=== PATIENT | male | born 1995 | race Caucasian/White ===

== ENCOUNTER 2017-07-27 18:42 | Emergency (ER) | payer BC, OTHER ==
[~2017-07-27] VITALS: Ht 175.3 cm; Wt 91.8 kg
[2017-07-27 18:52] VITALS: TEMP 36.8; Ht 175.3 cm; Wt 91.8 kg
[2017-07-27 18:57] VITALS: O2SAT 99
[2017-07-27] MEDS ORDERED: IBUPROFEN 200 MG TAB PO STA (19:08)
[2017-07-27] MEDS ORDERED: ACETAMINOPHEN 500 MG TAB PO STA (19:08)
[2017-07-27 19:19] LABS: BASO % 0.3 %; BASO ABS # 0.02 K/uL (0-0.2); COMPLETE YES; EOS % 0.8 %; HEMATOCRIT 46.2 % (42-52); IG% 0.3 %; LYMPH % 27.9 %; LYMPH ABS # 2.21 K/uL (1.2-3.4); MEAN CELL VOLUME 89.4 fL (80-100); MEAN CORPUSCULAR HEMOGLOBIN 32.3 pg (25-34); MEAN CORPUSCULAR HGB CONC 36.1 g/dl (32-36); MEAN PLATELET VOLUME 11.5 fL (7.4-10.4); MONO % 7.8 %; NEUT % 62.9 %; PLATELET COUNT 169 K/uL (130-400); RED BLOOD COUNT 5.17 M/uL (4.7-6.1); WHITE BLOOD COUNT 7.93 K/uL (4.8-10.8)
[2017-07-27 19:37] LABS: BUN/CREATININE RATIO 16.7 (10-20); CALCIUM 8.8 mg/dl (8.5-10.1); CREATININE 0.98 mg/dl (0.60-1.40); POTASSIUM 3.6 mmol/L (3.5-5.1)
--- NOTE | 2017-07-27 19:49 | EMERGENCY ROOM VISIT NOTE ---
History Report prepared by Joseibtiti: Ayad Richadr Under the Supervision of: Dr. Boaz Mccain M.D. First contact with patient: 19:01 Chief Complaint: CHEST PAIN Stated Complaint: CHEST, LEFT ARM PAIN Nursing Triage Summary: c/o left sided cp since this am with pain in shoulder and left arm History of Present Illness The patient is a 22 year old white male with a past medical history of wisdom teeth extraction who presents to the ED with a cc of constant chest pain beginning this morning. He rates his pain as a 4/10 in severity and reports that the pain is on the left side. The patient states that he woke up with this pain and was also experiencing left arm numbness. He states that his arm was also sore from his shoulder to his biceps. He admits that he had been drinking alcohol over the weekend. He admits that he sleeps on his left side at times. Positive chest pain, left arm sore, left arm numbness, lightheaded. Negative SOB , drug use, medications, allergies, falls, trauma, lifting anything heavy. Source of History: patient Onset: this morning Position: chest Symptom Intensity: 4/10 Timing: constant Associated Symptoms: + numbness, No SOB Review of Systems See HPI for pertinent positives and negatives. A total of ten systems were reviewed and were otherwise negative. Past Medical & Surgical Surgical Problems: (1) H/O wisdom tooth extraction Family History Hypertension Social History Smoking Status: Never Smoker Drug Use: none Marital Status: in relationship Occupation Status: [employer] student Current/Historical Medications No Active Prescriptions or Reported Meds Allergies Coded Allergies: No Known Allergies (Unverified , 01/22/15) Physical Exam Vital Signs Date Time Temp Pulse Resp B/P (MAP) Pulse Ox O2 Delivery O2 Flow Rate FiO2 07/27/17 20:55 57 18 137/72 99 Room Air 07/27/17 19:18 70 07/27/17 19:05 99 Room Air 07/27/17 18:57 99 Room Air 07/27/17 18:57 68 18 150/88 99 Room Air 07/27/17 18:52 36.8 84 18 142/85 98 Room Air Physical Exam GENERAL: Awake, alert, well-appearing, NAD HENT: Normocephalic, atraumatic. EYES: Normal conjunctiva. Sclera non-icteric. NECK: Supple. No nuchal rigidity. FROM. RESPIRATORY: CTAB, no rhonchi, wheezing, crackles CARDIAC: RRR, no MRG ABDOMEN: Soft, NTND, BS+ MSK: No chest wall TTP, no LE edema. No shoulder pain with active or passive shoulder motion. NV intact to MUR nerves. NEURO: GCS 15, CN 2-12 intact, moves all 4s on command, No current sensory deficit. SKIN: No rash or jaundice noted. Medical Decision & Procedures ER Provider Diagnostic Interpretation: X-ray: Per my interpretation, radiologist review. CHEST 2 VIEWS ROUTINE CLINICAL HISTORY: Chest pain. COMPARISON STUDY: No previous studies for comparison. FINDINGS: Lung volumes are normal. No pneumothorax or pleural effusion is present. There is no consolidation to suggest pneumonia. There is an opacity at the right cardiophrenic angle. Cardiac size is normal. Pulmonary vascularity is normal. IMPRESSION: 1. No acute cardiopulmonary findings. 2. Opacity at the right cardiophrenic angle which is nonspecific but may reflect artifact, hernia or pericardial cyst. This is of questionable significance however if symptoms persist, a chest CT is recommended. Electronically signed by: Kelton Shabazz M.D. 07/27/2017 8:43 PM Dictated Date/Time: 07/27/2017 8:39 PM Laboratory Results 07/27/17 19:00 Red Blood Count 5.17, Mean Corpuscular Volume 89.4, Mean Corpuscular Hemoglobin 32.3, Mean Corpuscular Hemoglobin Concent 36.1, Mean Platelet Volume 11.5, Neutrophils (%) (Auto) 62.9, Lymphocytes (%) (Auto) 27.9, Monocytes (%) (Auto) 7.8, Eosinophils (%) (Auto) 0.8, Basophils (%) (Auto) 0.3, Neutrophils # (Auto) 5.00, Lymphocytes # (Auto) 2.21, Monocytes # (Auto) 0.62, Eosinophils # (Auto) 0.06, Basophils # (Auto) 0.02 07/27/17 19:00 Test 07/27/17 19:00 White Blood Count 7.93 K/uL (4.8-10.8) Red Blood Count 5.17 M/uL (4.7-6.1) Hemoglobin 16.7 g/dL (14.0-18.0) Hematocrit 46.2 % (42-52) Mean Corpuscular Volume 89.4 fL (80-100) Mean Corpuscular Hemoglobin 32.3 pg (25-34) Mean Corpuscular Hemoglobin Concent 36.1 g/dl (32-36) Platelet Count 169 K/uL (130-400) Mean Platelet Volume 11.5 fL (7.4-10.4) Neutrophils (%) (Auto) 62.9 % Lymphocytes (%) (Auto) 27.9 % Monocytes (%) (Auto) 7.8 % Eosinophils (%) (Auto) 0.8 % Basophils (%) (Auto) 0.3 % Neutrophils # (Auto) 5.00 K/uL (1.4-6.5) Lymphocytes # (Auto) 2.21 K/uL (1.2-3.4) Monocytes # (Auto) 0.62 K/uL (0.11-0.59) Eosinophils # (Auto) 0.06 K/uL (0-0.5) Basophils # (Auto) 0.02 K/uL (0-0.2) RDW Standard Deviation 42.2 fL (36.4-46.3) RDW Coefficient of Variation 13.0 % (11.5-14.5) Immature Granulocyte % (Auto) 0.3 % Immature Granulocyte # (Auto) 0.02 K/uL (0.00-0.02) Anion Gap 7.0 mmol/L (3-11) Est Creatinine Clear Calc Drug Dose 133.5 ml/min Estimated GFR () 127.2 Estimated GFR (Non- 109.8 BUN/Creatinine Ratio 16.7 (10-20) Calcium Level 8.8 mg/dl (8.5-10.1) Laboratory results reviewed by me Medications Administered Medications (Trade) Dose Ordered Sig/Lori Route Start Time Stop Time Status Last Admin Dose Admin Ibuprofen (Advil Tab) 400 mg NOW STAT PO 07/27/17 19:08 07/27/17 19:10 DC 07/27/17 19:38 400 MG Acetaminophen (Tylenol Tab) 1,000 mg NOW STAT PO 07/27/17 19:08 07/27/17 19:10 DC 07/27/17 19:39 1,000 MG ECG Indication: chest pain Rate (beats per minute): 64 Rhythm: sinus with SA Findings: other (borderline prolonged OH, normal QRS and QTC. No other ST segment changes or TWI) ED Course 1926: The patient was evaluated in room C08. A complete history and physical exam was performed. 2107: I reevaluated the patient. Discussed results and discharge instructions: He verbalized understanding and agreement. The patient is ready for discharge. Medical Decision Differential diagnosis: Etiologies such as appendicitis, diverticulitis, PUD, biliary pathology, UTI, pancreatitis, obstruction, mesenteric ischemia, aortic pathology, infections, inflammatory bowel disease, renal colic, as well as others were entertained. Patient was seen and evaluated at the bedside. Patient did have an EKG and chest x-ray that were completed. Patient did have a sinus arrhythmia but no acute changes. Patient's chest x-ray was negative. Patient did complain of some mild bicep tenderness. Patient had no ecchymosis or neurovascular deficit. Patient did initially complain of some numbness however this did seem to resolve. Patient had no other neurologic deficits less likely TIA or stroke given the patient's lack of symptoms currently in addition to lack of risk factors and young age. Given the patient's history and physical normal EKG less likely ACS. Patient PERC out, less likely PE. Patient's pain was mildly improved after Motrin and Tylenol. Patient was given strict follow-up, discharge, and return precautions. Patient agreed with plan of care patient was safely discharged home. Medication Reconcilliation Current Medication List: was personally reviewed by me Blood Pressure Screening Patient's blood pressure: Elevated blood pressure Blood pressure disposition: Elevated BP felt to be situational Impression Primary Impression: Chest wall pain Scribe Attestation The scribe's documentation has been prepared under my direction and personally reviewed by me in its entirety. I confirm that the note above accurately reflects all work, treatment, procedures, and medical decision making performed by me. Departure Information Dispostion Home / Self-Care Prescriptions No Active Prescriptions or Reported Meds Referrals No Doctor, Assigned (PCP) Forms HOME CARE DOCUMENTATION FORM, IMPORTANT VISIT INFORMATION Patient Instructions Chest Pain - [facility], [facility] Additional Instructions Please return to the emergency department if you have worsening or recurrent symptoms not amenable to at-home treatment. Please call for a follow-up appointment with her primary care physician. Please take your medications as prescribed. If you have other concerns and/or complaints please feel free to also call your primary care physician's office or return the ED for further evaluation, management, and treatment. You may take 600 mg Ibuprofen every 6 hours as needed for pain with food for no more than 2 consecutive days. You may take tylenol 1000mg every 6 hours as needed for pain. You may take motrin and tylenol separately or at the same time. You have been examined and treated today on an emergency basis only. This is not a substitute for, or an effort to provide, complete comprehensive medical care. It is impossible to recognize and treat all injuries or illnesses in a single emergency department visit. It is therefore important that you follow up closely with [facility]. Call as soon as possible for an appointment. Thank you for your time and consideration. I look forward to speaking with you again soon. Please don't hesitate to call us if you have any questions.
--- NOTE | 2017-07-27 20:45 | DIAGNOSTIC IMAGING REPORT ---
CHEST 2 VIEWS ROUTINE CLINICAL HISTORY: Chest pain. COMPARISON STUDY: No previous studies for comparison. FINDINGS: Lung volumes are normal. No pneumothorax or pleural effusion is present. There is no consolidation to suggest pneumonia. There is an opacity at the right cardiophrenic angle. Cardiac size is normal. Pulmonary vascularity is normal. IMPRESSION: 1. No acute cardiopulmonary findings. 2. Opacity at the right cardiophrenic angle which is nonspecific but may reflect artifact, hernia or pericardial cyst. This is of questionable significance however if symptoms persist, a chest CT is recommended. Electronically signed by: Kelton Shabazz M.D. 07/27/2017 8:43 PM Dictated Date/Time: 07/27/2017 8:39 PM
[2017-07-27 20:55] VITALS: BP 137/72; PULSE 57; O2SAT 99
== END 2017-07-27 21:20 | disposition home or self-care (01) ==
LOC: C.EDB 18:44 → C.EDC 21:20
DX: R07.89 Other chest pain (principal); I49.9 Cardiac arrhythmia, unspecified; Z82.49 Family history of ischemic heart disease and other diseases of the circulatory system